=== PATIENT | male | born 1955 | race Caucasian/White ===

== ENCOUNTER 2024-05-17 17:37 | Inpatient (IN) | payer MEDICARE, OTHER ==
[~2024-05-17] VITALS: Ht 175.3 cm; Wt 79.8 kg
[~2024-05-17 17:37] MED LIST: AMLO5TAB88 PO; BACL-141 PO; FINA5TAB11 PO; GABA-1180 PO; HYDR-4009 PO; METH-819 PO; OMEP40CA20 PO; TAMS-11 PO
[2024-05-17] MEDS ORDERED: LACTATED RINGERS IV SCH (18:00)
[2024-05-17] MEDS ORDERED: VANCOMYCIN 1G PREMIX 200 ML IV SCH (18:00)
[2024-05-17] MEDS ORDERED: CEFEPIME 2GM IN DEXT 5% 100ML IV ONE (18:00)
[2024-05-17] MEDS ORDERED: AMIODARONE 360MG/200ML 200 ML IV STA (18:07)
[2024-05-17] MEDS: LACTATED RINGERS 1,000 ML IV SCH (18:15)
[2024-05-17] MEDS ORDERED: AMIODARONE HCL 50MG/ML 3ML VIAL IV ONE (18:15)
[2024-05-17 18:46] LABS: BASOPHILS % 0.7 % (0.0-2.0); EOSINOPHILS % 0.9 % (0.0-5.0); HEMATOCRIT. 41.3 % (42.0-52.0); HEMOGLOBIN. 13.8 g/dL (14.0-18.0); LYMPHOCYTES % 15.4 % (20.0-50.0); MEAN CORPUSCULAR HGB CONC 33.4 g/dL (31.0-37.0); MEAN CORPUSCULAR VOLUME 95.5 fL (80.0-94.0); MEAN PLATELET VOLUME 8.9 fl (7.4-10.4); MONOCYTES % 5.3 % (2.0-8.0); NEUTROPHILS % 77.7 % (40.0-76.0); PLATELET 321 x1000/uL (130-400); RED BLOOD CELL COUNT 4.33 mill/uL (4.7-6.1); RED CELL DISTRIBUTION WIDTH 14.2 % (11.6-14.6); WHITE BLOOD COUNT 12.7 x1000/uL (4.5-11.0)
[2024-05-17] MEDS: METRONIDAZOLE 500 MG PREMIX 100 ML IV ONE (18:50)
[2024-05-17 18:53] LABS: INR 1.1; PROTHROMBIN TIME 11.9 sec (9.6-11.0)
[2024-05-17] MEDS: ONDANSETRON HCL 4MG/2ML INJ IV ONE (18:55)
[2024-05-17 19:13] LABS: CHLORIDE 103 mEq/L (98-107); POTASSIUM 4.2 mEq/L (3.5-5.1); SODIUM 139 mEq/L (136-145)
[2024-05-17 19:15] LABS: CALCIUM 9.7 mg/dL (8.7-10.4); CARBON DIOXIDE 29 mEq/L (21-32)
[2024-05-17] MEDS: AMIODARONE 150MG/100ML PREMIX IV NR (19:17)
[2024-05-17 19:20] LABS: CREATININE 0.8 mg/dL (0.6-1.3); GLUCOSE 101 mg/dL (70-105); TROPONIN I HIGH SENSITIVITY 4 ng/L (3.0-53); UREA NITROGEN BLOOD 14 mg/dL (9-23)
[2024-05-17] MEDS: CEFEPIME 2GM/100ML 100 ML IV NR (19:20)
[2024-05-17 19:21] LABS: LACTIC ACID 2.4 mmol/L (0.4-2.0)
[2024-05-17 19:22] LABS: ALANINE AMINOTRANSFERASE 10 IU/L (10-49); ALBUMIN 4.5 g/dL (3.2-4.8); ASPARTATE AMINOTRANSFERASE 17 IU/L (<34); BILIRUBIN DIRECT 0.2 mg/dL (<=3.0); BILIRUBIN TOTAL 0.7 mg/dL (0.1-1.0); PROTEIN TOTAL 7.2 g/dL (6.0-8.3)
[2024-05-17 20:04] LABS: CLARITY URINE CLEAR (CLEAR); COLOR URINE YELLOW (YELLOW); GLUCOSE URINE NEGATIVE (NEGATIVE); KETONES URINE NEGATIVE (NEGATIVE); LEUKOCYTE ESTERASE URINE NEGATIVE (NEGATIVE); NITRITE URINE NEGATIVE (NEGATIVE); OCCULT BLOOD URINE NEGATIVE (NEGATIVE); PH URINE 7.5 (4.5-8.0); PROTEIN URINE NEGATIVE (NEGATIVE); SPECIFIC GRAVITY URINE 1.013 (1.005-1.030); UROBILINOGEN URINE 0.2 E.U./dL (0.2-1.0)
[2024-05-17] MEDS: VANCOMYCIN 1G PREMIX 200 ML IV SCH (20:25)
[2024-05-17] MEDS: AMIODARONE 360MG/200ML D5W PREMIX IV SCH (20:25)
[2024-05-17 20:36] LABS: TROPONIN I HIGH SENSITIVITY 4 ng/L (3.0-53)
[2024-05-17] MEDS ORDERED: LACTATED RINGERS 1,000 ML IV SCH (21:30)
[2024-05-17] MEDS ORDERED: NALOXONE HCL 0.4MG/ML VIAL IV PRN (23:45)
[2024-05-17] MEDS: MORPHINE SULFATE 2 MG/ML INJ (NOT FOR IM USE) IV PRN (23:55)
[2024-05-18] VITALS (9 sets, daily range): BP systolic 96–125; BP diastolic 69–102; PULSE 95–134; RESP 11–25; TEMP 36.3918–37.0296; O2SAT 94–98
[2024-05-18] MEDS: VANCOMYCIN 750MG PMX (XELLIA) 150 ML IV NR (00:57)
[2024-05-18] MEDS ORDERED: ONDANSETRON HCL 4MG/2ML INJ IV PRN (01:45)
[2024-05-18] MEDS ORDERED: ZOLPIDEM TARTRATE 5MG TABLET PO PRN (01:45)
[2024-05-18] MEDS ORDERED: ACETAMINOPHEN 325MG TABLET PO PRN (01:45)
[2024-05-18] MEDS ORDERED: IPRATROPIUM/ALBUTEROL 0.5-3(2.5)MG/3ML NEB NEB PRN (01:45)
[2024-05-18] MEDS: AMLODIPINE 5MG TABLET PO SCH (02:00)
[2024-05-18] MEDS: HYDROCODONE/ACETAMINOPHEN 5/325MG TABLET PO PRN (02:18)
[2024-05-18] MEDS: SODIUM CHLORIDE 0.9% 1,000 ML IV SCH (03:21)
[2024-05-18] MEDS: PIPERACILLIN/TAZO 3.375G/50ML 50 ML IV SCH (05:19)
[2024-05-18] MEDS ORDERED: PIPERACILLIN/TAZO 3.375G/50ML 50 ML IV SCH (06:00)
[2024-05-18 08:10] LABS: CARBON DIOXIDE 27 mEq/L (21-32); CHLORIDE 105 mEq/L (98-107); POTASSIUM 3.7 mEq/L (3.5-5.1); SODIUM 139 mEq/L (136-145)
[2024-05-18 08:11] LABS: CALCIUM 9.5 mg/dL (8.7-10.4)
[2024-05-18 08:12] LABS: TROPONIN I HIGH SENSITIVITY 6 ng/L (3.0-53)
[2024-05-18 08:15] LABS: CREATINE KINASE 57 IU/L (46-171)
[2024-05-18 08:16] LABS: GLUCOSE 93 mg/dL (70-105); UREA NITROGEN BLOOD 11 mg/dL (9-23)
[2024-05-18 08:19] LABS: BASOPHILS % 0.3 % (0.0-2.0); EOSINOPHILS % 1.7 % (0.0-5.0); HEMATOCRIT. 39.2 % (42.0-52.0); HEMOGLOBIN. 12.9 g/dL (14.0-18.0); LYMPHOCYTES % 21.9 % (20.0-50.0); MEAN CORPUSCULAR HEMOGLOBIN 31.7 pg (28.0-32.0); MEAN CORPUSCULAR VOLUME 96.2 fL (80.0-94.0); MEAN PLATELET VOLUME 8.7 fl (7.4-10.4); MONOCYTES % 6.8 % (2.0-8.0); NEUTROPHILS % 69.3 % (40.0-76.0); PLATELET 263 x1000/uL (130-400); RED BLOOD CELL COUNT 4.08 mill/uL (4.7-6.1); RED CELL DISTRIBUTION WIDTH 14.1 % (11.6-14.6); WHITE BLOOD COUNT 13.1 x1000/uL (4.5-11.0)
[2024-05-18 08:38] LABS: CREATININE 0.7 mg/dL (0.6-1.3)
[2024-05-18] MEDS ORDERED: METHADONE HCL 10MG TABLET PO SCH (09:00)
[2024-05-18] MEDS: PANTOPRAZOLE SODIUM 40 MG/VIAL IV SCH (09:43)
[2024-05-18] MEDS: TAMSULOSIN HCL 0.4MG SR CAPSULE PO SCH (09:43)
[2024-05-18] MEDS: METHADONE HCL 10MG TABLET PO NR (09:45)
[2024-05-18] MEDS: GABAPENTIN 300MG CAPSULE PO SCH (09:45)
[2024-05-18] MEDS: FINASTERIDE 5MG TABLET PO SCH (10:25)
[2024-05-18] MEDS: METHADONE HCL 10MG TABLET PO SCH ×2 (10:33→15:53)
[2024-05-18] MEDS ORDERED: VANCOMYCIN 1GM/200ML PMX (BAXTER) IV SCH (11:00)
[2024-05-18] MEDS: METOPROLOL TARTRATE 50MG TABLET PO SCH (13:45)
[2024-05-18 13:50] LABS: *AMPHETAMINES SCREEN URINE NEGATIVE (NEGATIVE); *BARBITURATES SCREEN URINE NEGATIVE (NEGATIVE); *BENZODIAZEPINES SCREEN URINE NEGATIVE (NEGATIVE); *COCAINE SCREEN URINE NEGATIVE (NEGATIVE); CANNABINOID URINE SCREEN PRESUMPTIVE POSITIVE (NEGATIVE); ECSTASY MDMA SCREEN URINE NEGATIVE (NEGATIVE); METHADONE URINE SCREEN Pos (NEGATIVE); OPIATES URINE SCREEN PRESUMPTIVE POSITIVE (NEGATIVE); PHENCYCLIDINE URINE SCREEN NEGATIVE (NEGATIVE)
[2024-05-18 16:43] LABS: CREATINE KINASE 67 IU/L (46-171)
[2024-05-18 16:44] LABS: TROPONIN I HIGH SENSITIVITY 5 ng/L (3.0-53)
[2024-05-18] MEDS: LORAZEPAM 2MG/ML INJ IV PRN (18:41)
[2024-05-18] MEDS: VANCOMYCIN 1GM/200ML PMX (BAXTER) IV SCH (18:41)
[2024-05-19] VITALS (12 sets, daily range): BP systolic 90–137; BP diastolic 63–96; PULSE 88–117; RESP 10–20; TEMP 36.33624–37.2252; O2SAT 94–99
[2024-05-19 07:30] LABS: CARBON DIOXIDE 28 mEq/L (21-32); CHLORIDE 104 mEq/L (98-107); POTASSIUM 3.8 mEq/L (3.5-5.1); SODIUM 139 mEq/L (136-145)
[2024-05-19 07:31] LABS: CALCIUM 8.8 mg/dL (8.7-10.4)
[2024-05-19 07:36] LABS: CREATININE 0.8 mg/dL (0.6-1.3); GLUCOSE 103 mg/dL (70-105); UREA NITROGEN BLOOD 9 mg/dL (9-23)
[2024-05-19 07:38] LABS: ALANINE AMINOTRANSFERASE 8 IU/L (10-49); ALBUMIN 3.8 g/dL (3.2-4.8); ASPARTATE AMINOTRANSFERASE 15 IU/L (<34); BILIRUBIN TOTAL 0.7 mg/dL (0.1-1.0); HEMATOCRIT. 38.2 % (42.0-52.0); HEMOGLOBIN. 12.5 g/dL (14.0-18.0); MEAN CORPUSCULAR HEMOGLOBIN 31.5 pg (28.0-32.0); MEAN CORPUSCULAR HGB CONC 32.8 g/dL (31.0-37.0); MEAN CORPUSCULAR VOLUME 96.1 fL (80.0-94.0); PLATELET 232 x1000/uL (130-400); PROTEIN TOTAL 6.1 g/dL (6.0-8.3); RED BLOOD CELL COUNT 3.98 mill/uL (4.7-6.1); RED CELL DISTRIBUTION WIDTH 14.1 % (11.6-14.6)
[2024-05-19] MEDS: METOPROLOL TARTRATE 25MG TABLET PO NR (11:30)
[2024-05-19 15:45] LABS: ATYPICAL LYMPHOCYTES 3
[2024-05-19 15:46] LABS: PLATELET ESTIMATE NORMAL
[2024-05-19] MEDS ORDERED: GUAIFENESIN-DM 200MG-20MG/10ML UDC PO PRN (16:00)
[2024-05-19] MEDS: METOPROLOL TARTRATE 50MG TABLET PO SCH (21:00)
[2024-05-19] MEDS: VANCOMYCIN 1GM/200ML PMX (BAXTER) IV SCH (21:56)
[2024-05-20] VITALS (12 sets, daily range): BP systolic 92–144; BP diastolic 70–94; PULSE 77–128; RESP 10–19; TEMP 36.44736–37.05852; O2SAT 95–99
[2024-05-20 08:53] LABS: CHLORIDE 107 mEq/L (98-107); POTASSIUM 5.4 mEq/L (3.5-5.1); SODIUM 139 mEq/L (136-145)
[2024-05-20 08:54] LABS: CALCIUM 8.8 mg/dL (8.7-10.4); CARBON DIOXIDE 24 mEq/L (21-32)
[2024-05-20 08:59] LABS: CREATININE 0.9 mg/dL (0.6-1.3); GLUCOSE 76 mg/dL (70-105); UREA NITROGEN BLOOD 10 mg/dL (9-23)
[2024-05-20 09:01] LABS: ALANINE AMINOTRANSFERASE 15 IU/L (10-49); ALBUMIN 3.8 g/dL (3.2-4.8); ASPARTATE AMINOTRANSFERASE 29 IU/L (<34); BILIRUBIN TOTAL 0.7 mg/dL (0.1-1.0)
[2024-05-20 09:02] LABS: PROTEIN TOTAL 5.9 g/dL (6.0-8.3)
[2024-05-20 09:18] LABS: HEMATOCRIT. 38.8 % (42.0-52.0); HEMOGLOBIN. 13.1 g/dL (14.0-18.0); MEAN CORPUSCULAR HEMOGLOBIN 32.8 pg (28.0-32.0); MEAN CORPUSCULAR HGB CONC 33.8 g/dL (31.0-37.0); MEAN CORPUSCULAR VOLUME 97.2 fL (80.0-94.0); MEAN PLATELET VOLUME 9.6 fl (7.4-10.4); PLATELET 154 x1000/uL (130-400); RED BLOOD CELL COUNT 3.99 mill/uL (4.7-6.1); RED CELL DISTRIBUTION WIDTH 13.8 % (11.6-14.6); WHITE BLOOD COUNT 10.9 x1000/uL (4.5-11.0)
[2024-05-20] MEDS ORDERED: METO25TA6 PO (15:31)
[2024-05-20] MEDS ORDERED: LEVO750T68 MT (15:32)
[2024-05-20 16:29] LABS: PLATELET ESTIMATE SLIGHTLY DECREASED
[2024-05-20] MEDS: METOPROLOL TARTRATE 25MG TABLET PO SCH (20:14)
[2024-05-21] VITALS (11 sets, daily range): BP systolic 93–147; BP diastolic 71–136; PULSE 74–104; RESP 10–22; TEMP 33.72492–36.78072; O2SAT 94–98
[2024-05-21] MEDS ORDERED: ATOR10TA PO (12:27)
[2024-05-21] MEDS ORDERED: ASPI-1406 PO (12:27)
[2024-05-21 12:30] LABS: BASOPHILS % 0.7 % (0.0-2.0); EOSINOPHILS % 3.3 % (0.0-5.0); HEMATOCRIT. 38.8 % (42.0-52.0); HEMOGLOBIN. 13.2 g/dL (14.0-18.0); LYMPHOCYTES % 18.3 % (20.0-50.0); MEAN CORPUSCULAR HEMOGLOBIN 32.5 pg (28.0-32.0); MEAN CORPUSCULAR VOLUME 95.4 fL (80.0-94.0); MEAN PLATELET VOLUME 8.9 fl (7.4-10.4); MONOCYTES % 8.7 % (2.0-8.0); PLATELET 226 x1000/uL (130-400); RED BLOOD CELL COUNT 4.07 mill/uL (4.7-6.1); RED CELL DISTRIBUTION WIDTH 13.6 % (11.6-14.6); WHITE BLOOD COUNT 10.2 x1000/uL (4.5-11.0)
[2024-05-21 12:35] LABS: CHLORIDE 106 mEq/L (98-107); POTASSIUM 4.3 mEq/L (3.5-5.1); SODIUM 141 mEq/L (136-145)
[2024-05-21 12:36] LABS: CALCIUM 9.3 mg/dL (8.7-10.4); CARBON DIOXIDE 29 mEq/L (21-32)
[2024-05-21 12:41] LABS: CREATININE 0.8 mg/dL (0.6-1.3); GLUCOSE 103 mg/dL (70-105); UREA NITROGEN BLOOD 10 mg/dL (9-23)
[2024-05-21 12:43] LABS: ALANINE AMINOTRANSFERASE 9 IU/L (10-49); ALBUMIN 3.8 g/dL (3.2-4.8); ASPARTATE AMINOTRANSFERASE 18 IU/L (<34); BILIRUBIN TOTAL 0.7 mg/dL (0.1-1.0); PROTEIN TOTAL 6.3 g/dL (6.0-8.3)
[2024-05-21] MEDS ORDERED: METO25TA6 PO (14:09)
[2024-05-21] MEDS: DIGOXIN 500MCG/2ML AMP IV SCH (15:56)
[2024-05-21] MEDS ORDERED: DIGOXIN 250MCG TABLET PO SCH (18:00)
[2024-05-21] MEDS: ONDANSETRON HCL 4MG/2ML INJ IV PRN (18:14)
[2024-05-21] MEDS ORDERED: ATORVASTATIN CALCIUM 10MG TABLET PO SCH (21:00)
[2024-05-21] MEDS ORDERED: METOPROLOL TARTRATE 50MG TABLET PO SCH (21:00)
[2024-05-22] MEDS ORDERED: ASPIRIN 81MG EC TABLET PO SCH (09:00)
[2024-05-22] MEDS ORDERED: DIGOXIN 125MCG TABLET PO SCH (18:00)
== END 2024-05-21 19:30 | disposition home health service (06) | DRG 720 ==
LOC: ER 17:37 → EDBEDREQ 17:54 → EDBEDREQTM 19:26 → EDBEDREQSVC 19:26 → 5EST 05-18 01:16
PROVIDERS: ADMIT Internal Medicine; ATTEND Internal Medicine
DX: A41.89 Other specified sepsis (principal); G82.50 Quadriplegia, unspecified; G93.41 Metabolic encephalopathy; E87.20 Acidosis, unspecified; I48.0 Paroxysmal atrial fibrillation; E86.0 Dehydration; K80.62 Calculus of gallbladder and bile duct with acute cholecystitis without obstruction; I48.91 Unspecified atrial fibrillation; D64.9 Anemia, unspecified; I69.354 Hemiplegia and hemiparesis following cerebral infarction affecting left non-dominant side; F11.20 Opioid dependence, uncomplicated; F17.210 Nicotine dependence, cigarettes, uncomplicated; B96.89 Other specified bacterial agents as the cause of diseases classified elsewhere; G89.4 Chronic pain syndrome; K57.30 Diverticulosis of large intestine without perforation or abscess without bleeding; R00.1 Bradycardia, unspecified; M47.816 Spondylosis without myelopathy or radiculopathy, lumbar region; N40.0 Benign prostatic hyperplasia without lower urinary tract symptoms; Z95.0 Presence of cardiac pacemaker; Z79.899 Other long term (current) drug therapy
CPT/HCPCS: 36415; 71045; 74174; 76700; 78227; 80048; 80053; 80076; 80202; 80305; 81003; 82270; 82550; 83605; 83735; 84145; 84484; 85025; 86705; 86709; 86850; 86900; 87015; 87045; 87340; 87427; 87449; 87493; 89055; 92523; 92610; 97162; 97166; 99291; A9537; J0282; J0692; J1160; J2060; J2270; J2405; J2470; J2543; J3370; J3490; J7030